=== PATIENT | male | born 2000 | race Hispanic/Latino ===

== ENCOUNTER 2024-01-21 20:36 | Emergency (ER) | payer SELFPAY ==
[~2024-01-21] VITALS: Ht 167.6 cm; Wt 79.0 kg
[2024-01-21] MEDS ORDERED: PROMETHAZINE HCL 25 MG/ML AMP IV ONE (21:10)
[2024-01-21] MEDS ORDERED: SODIUM CHLORIDE 0.9% 1,000 ML IV ONE (21:10)
[2024-01-21 21:33] LABS: BASO% 0.5 % (0-3); EOS% 2.4 % (0-8); HEMATOCRIT 41.2 % (39.0-50.0); HEMOGLOBIN 14.2 g/dl (14.0-18.0); IMMATURE GRANULOCYTES 0.1 % (0.0-5.0); LYMPH% 41.3 % (15-41); MEAN CELL VOLUME 91.6 fL CALC (80.0-100.0); MEAN CORPUSCULAR HGB 31.6 pG CALC (26.0-32.0); MEAN CORPUSCULAR HGB CONC 34.5 g/dL CAL (32.0-36.0); MONO% 9.9 % (2-13); NEUT# 3.39 thou/uL (1.82-7.42); NEUT% 45.8 % (42-76); RED BLOOD COUNT 4.5 mill/uL (4.70-6.10); RED CELL DISTRI WIDTH 12.4 % (11.5-15.5)
[2024-01-21 21:45] LABS: ALBUMIN 4.9 g/dL (3.2-5.0); BILIRUBIN, TOTAL 1.4 mg/dL (0.2-1.3); CREATININE 0.9 mg/dL (0.7-1.3); POTASSIUM 3.2 mmol/l (3.5-5.1); TOTAL PROTEIN 8.2 g/dL (6.3-8.2)
[2024-01-21] MEDS ORDERED: LACTATED RINGER'S 1,000 ML IV ONE (22:30)
[2024-01-21 22:46] LABS: URINE BILIRUBIN - DIPSTICK Negative (NEGATIVE); URINE BLOOD DIPSTICK Negative (NEGATIVE); URINE GLUCOSE - DIPSTICK Negative (NEGATIVE); URINE KETONE Trace mg/dL (NEGATIVE); URINE LEUK ESTERASE Negative (NEGATIVE); URINE NITRITE - DIPSTICK Negative (Negative); URINE PH 7.5 (4.5-8.0); URINE PROTEIN - DIPSTICK 30 mg/dL (NEG-TRACE)
[2024-01-21 22:51] LABS: URINE COLOR Yellow
[2024-01-21 22:58] LABS: URINE RBC 0-2 RBC/hpf (0-5); URINE WBC 0-2 WBC/hpf (0-5)
[2024-01-21 23:09] VITALS: BP 150/96
[2024-01-21 23:15] VITALS: BP 136/84
[2024-01-21 23:30] VITALS: BP 134/90
[2024-01-21 23:45] VITALS: BP 129/79
[2024-01-21] MEDS ORDERED: PROMETHAZINE HY25 M1 PO (23:51)
[2024-01-22] VITALS: BP 137/82
[2024-01-22 00:04] VITALS: BP 137/82
== END 2024-01-22 00:04 | disposition home or self-care (01) | DRG 392 ==
LOC: ED 20:36
PROVIDERS: Family Medicine
DX: R10.30 Lower abdominal pain, unspecified (principal); J45.909 Unspecified asthma, uncomplicated